=== PATIENT | female | born 1990 | race Caucasian/White ===

== ENCOUNTER 2016-02-21 15:35 | Outpatient (CLI) | payer MEDICAID | END 2016-02-21 15:36 | disposition home or self-care (01) | DX: Z36 Encounter for antenatal screening of mother (principal); Z3A.23 23 weeks gestation of pregnancy ==

== ENCOUNTER 2016-04-03 15:56 | Outpatient (CLI) | payer MEDICAID | END 2016-04-03 15:57 | DX: Z11.3 Encounter for screening for infections with a predominantly sexual mode of transmission (principal) ==

== ENCOUNTER 2016-04-17 08:00 | Outpatient (CLI) | payer MEDICAID | END 2016-04-17 23:59 | disposition home or self-care (01) | DX: Z36 Encounter for antenatal screening of mother (principal) ==

== ENCOUNTER 2016-05-01 10:25 | Outpatient (CLI) | payer MEDICAID | END 2016-05-01 10:26 | disposition home or self-care (01) | DX: R31.9 Hematuria, unspecified (principal) ==

== ENCOUNTER 2016-05-11 03:43 | Inpatient (IN) | payer MEDICAID ==
[2016-05-11] MEDS ORDERED: SODIUM CHLORIDE FLUSH 0.9% 10 ML SYRINGE IVP PRN (05:23)
[2016-05-11] MEDS ORDERED: SODIUM CHLORIDE FLUSH 0.9% 10 ML SYRINGE IVP SCH (06:00)
[2016-05-11] MEDS ORDERED: LACTATED RINGERS 1,000 ML IV SCH (06:00)
[2016-05-11] MEDS ORDERED: NITROFURANTOIN MACRO 100 MG CAPSULE PO SCH (09:00)
== END 2016-05-11 08:30 | disposition home or self-care (01) | DRG 780 ==
DX: O47.1 False labor at or after 37 completed weeks of gestation (principal); Z3A.39 39 weeks gestation of pregnancy; Z80.8 Family history of malignant neoplasm of other organs or systems

== ENCOUNTER 2016-05-11 16:20 | Outpatient (CLI) | payer MEDICAID | END 2016-05-11 18:45 | disposition home or self-care (01) | DX: Z34.03 Encounter for supervision of normal first pregnancy, third trimester (principal) ==

== ENCOUNTER 2016-05-11 22:59 | Inpatient (IN) | payer MEDICAID ==
[2016-05-12] MEDS ORDERED: SODIUM CHLORIDE FLUSH 0.9% 10 ML SYRINGE IVP PRN (01:06)
[2016-05-12] MEDS: LACTATED RINGERS 1,000 ML IV SCH ×3 (01:30→12:12)
[2016-05-12] MEDS: fentaNYL 100 MCG/2 ML VIAL IVP SCH ×2 (02:41→04:01)
[2016-05-12] MEDS ORDERED: fentaNYL 250 MCG/5 ML VIAL IVP ONE (03:45)
[2016-05-12] MEDS ORDERED: fentaNYL 100 MCG/2 ML VIAL IVP SCH ×2 (04:00→05:00)
[2016-05-12] MEDS ORDERED: OXYTOCIN/LACTATED RINGERS 250 ML IV ONE ×2 (06:57→10:15)
[2016-05-12] MEDS ORDERED: LIDOCAINE 1% 50 ML MDV ONE (07:20)
[2016-05-12] MEDS ORDERED: NITROFURANTOIN MACRO 100 MG CAPSULE PO SCH (09:00)
[2016-05-12] MEDS ORDERED: WITCH HAZEL/GLYCERIN 1 EACH MED..PAD TOP PRN (09:34)
[2016-05-12] MEDS ORDERED: HYDROCORTISONE/PRAMOXINE 10 GM PR PRN (09:34)
[2016-05-12] MEDS: SODIUM CHLORIDE FLUSH 0.9% 10 ML SYRINGE IVP SCH (12:02)
[2016-05-12] MEDS: ACETAMINOPHEN 500 MG TABLET PO SCH ×2 (12:05→20:16)
[2016-05-12] MEDS: IBUPROFEN 800 MG TABLET PO SCH ×3 (12:05→23:16)
[2016-05-12] MEDS: NITROFURANTOIN MACRO 100 MG CAPSULE PO SCH ×2 (12:05→23:16)
[2016-05-12] MEDS: DOCUSATE SODIUM 100 MG CAPSULE PO SCH (23:16)
[2016-05-13] MEDS: SODIUM CHLORIDE FLUSH 0.9% 10 ML SYRINGE IVP SCH ×2 (07:43→16:54)
[2016-05-13] MEDS: LACTATED RINGERS 1,000 ML IV SCH ×2 (07:44→16:54)
[2016-05-13] MEDS: ACETAMINOPHEN 500 MG TABLET PO SCH ×3 (08:01→16:55)
[2016-05-13] MEDS: DOCUSATE SODIUM 100 MG CAPSULE PO SCH ×2 (08:02→20:58)
[2016-05-13] MEDS: NITROFURANTOIN MACRO 100 MG CAPSULE PO SCH ×2 (08:02→20:58)
[2016-05-13] MEDS: IBUPROFEN 800 MG TABLET PO SCH ×3 (08:02→20:02)
[2016-05-14] MEDS: IBUPROFEN 800 MG TABLET PO SCH ×2 (01:33→08:25)
[2016-05-14] MEDS: ACETAMINOPHEN 500 MG TABLET PO SCH (01:34)
[2016-05-14] MEDS: DOCUSATE SODIUM 100 MG CAPSULE PO SCH (08:29)
[2016-05-14] MEDS: NITROFURANTOIN MACRO 100 MG CAPSULE PO SCH (08:29)
== END 2016-05-14 11:00 | disposition home or self-care (01) | DRG 775 ==
PROC: 10907ZC Drainage of Amniotic Fluid, Therapeutic from Products of Conception, Via Natural or Artificial Opening (ICD-10-PCS; principal; 2016-05-12)
PROC: 0HQ9XZZ Repair Perineum Skin, External Approach (ICD-10-PCS; principal; 2016-05-12)
PROC: 10E0XZZ Delivery of Products of Conception, External Approach (ICD-10-PCS; principal; 2016-05-12)
DX: O70.0 First degree perineal laceration during delivery (principal); O76 Abnormality in fetal heart rate and rhythm complicating labor and delivery; Z3A.39 39 weeks gestation of pregnancy; Z37.0 Single live birth; Z86.59 Personal history of other mental and behavioral disorders

== ENCOUNTER 2017-06-30 08:00 | Outpatient (CLI) | payer MEDICAID ==
[2017-06-30 13:18] LABS: MUDS CUTOFF CONCENTRATIONS CUTOFF CONC BELOW:
[2017-06-30 14:06] LABS: AMPHETAMINE SCREEN,URINE NEGATIVE (NEGATIVE); BENZODIAZEPINES SCREEN, URINE NEGATIVE (NEGATIVE); COCAINE SCREEN URINE NEGATIVE (NEGATIVE); METHADONE SCREEN, URINE NEGATIVE (NEGATIVE); METHAMPHETAMINES SCREEN, URINE NEGATIVE (NEGATIVE); OPIATE SCREEN, URINE NEGATIVE (NEGATIVE); OXYCODONE SCREEN, URINE NEGATIVE (NEGATIVE); PROPOXYPHENE SCREEN, URINE NEGATIVE (NEGATIVE); TRICYCLIC ANTIDEPRESSANT,URINE NEGATIVE (NEGATIVE)
[2017-06-30 19:13] LABS: BASOPHILS % (AUTO) 0.6 %; EOSINOPHILS # (AUTO) 0.1 10^3/uL (0.0-0.7); EOSINOPHILS % (AUTO) 0.9 %; LYMPHOCYTES # (AUTO) 1.6 10^3/uL (1.5-3.5); LYMPHOCYTES % (AUTO) 21.5 %; MEAN CORPUSCULAR HEMOGLOBIN 28.2 pg (27.0-31.0); MEAN CORPUSCULAR HGB CONC 32.8 g/dL (32.0-36.0); MEAN CORPUSCULAR VOLUME 85.9 fL (81.0-99.0); MEAN PLATELET VOLUME 9.2 fL (7.9-10.8); MONOCYTES # (AUTO) 0.9 10^3/uL (0.0-1.0); MONOCYTES % (AUTO) 11.5 %; NEUTROPHILS # (AUTO) 4.9 10^3/uL (1.5-6.6); NEUTROPHILS % (AUTO) 65.5 %; PLT - PLATELET COUNT 292 10^3/uL (130-450); RED BLOOD COUNT 4.26 10^6/uL (4.20-5.40); RED CELL DISTRIBUTION WIDTH 14.1 % (12.0-15.0); WHITE BLOOD COUNT 7.4 x10^3/uL (4.8-10.8)
[2017-06-30 19:17] LABS: BILIRUBIN,URINE NEGATIVE (NEGATIVE); GLUCOSE, URINE (UA) NEGATIVE (NEGATIVE); KETONES,URINE (UA) NEGATIVE (NEGATIVE); LEUKOCYTE ESTERASE, URINE NEGATIVE (NEGATIVE); NITRITE,URINE NEGATIVE (NEGATIVE); OCCULT BLOOD,URINE NEGATIVE (NEGATIVE); PH,URINE 7.5 PH (5.0-7.5); PROTEIN,URINE NEGATIVE (NEGATIVE); UROBILINOGEN,URINE 0.2 (NORMAL) E.U./dL (NORMAL)
[2017-06-30 19:30] LABS: AMORPHOUS SEDIMENT,UR Moderate /LPF; BACTERIA,URINE Few /HPF (None Seen); CLARITY,URINE CLEAR (CLEAR); RBC,URINE None Seen /HPF (0-5); SQUAMOUS EPITHELIAL CELL,UR MANY Squamous (<= Few)
[2017-07-01 10:54] LABS: HEPATITIS B SURFACE ANTIGEN NON-REACTIVE (NON-REACTIVE)
[2017-07-01 10:55] LABS: HEPATITIS C ANTIBODY NON-REACTIVE (NON-REACTIVE)
[2017-07-01 14:07] LABS: HIV AG/AB 4TH GEN NON-REACTIVE (NON-REACTIVE)
== END 2017-06-30 08:01 | disposition home or self-care (01) ==
LOC: LAB.N 08:00
PROVIDERS: ATTEND Nurse Practitioner Obstetrics & Gynecology
DX: Z36.9 Encounter for antenatal screening, unspecified (principal)
CPT/HCPCS: 36415; 80306; 81001; 81599; 85025; 86592; 86762; 86803; 86850; 86900; 86901; 87340; 87389

== ENCOUNTER 2017-08-04 17:59 | Emergency (ER) | payer MEDICAID ==
--- NOTE | 2017-08-04 20:29 | ED Physician Documentation ---
PD HPI LOWER EXT INJURY - Stated complaint Stated Complaint: LT ANKLE PX - Chief complaint Chief Complaint: Ext Problem - History obtained from History obtained from: Patient - History of Present Illness PD HPI LOW EXT INJURY LOCATION: Left, Foot Type of injury: Fall Where injury occurred: Home Timing - onset: Enter time (13:00), Today Timing - details: Abrupt onset Improved by: Rest Worsened by: Moving, Palpating Associated symptoms: Swelling Recently seen: Not recently seen - Additional information Additional information: twisted left ankle when walking down steps at home (outdoors). Minimal weight- bearing due to pain. She is approximately 10 weeks Review of Systems Musculoskeletal: reports: Extremity pain, Extremity swelling, Pain with weight bearing Neurologic: denies: Focal weakness, Numbness PD PAST MEDICAL HISTORY - Past Medical History Respiratory: Asthma - Past Surgical History Past Surgical History: No - Present Medications Home Medications: Ambulatory Orders Medication Instructions Recorded Confirmed No Known Home Medications [No 08/04/17 08/04/17 Known Home Medications] - Allergies Allergies/Adverse Reactions: Allergies Allergy/AdvReac Type Severity Reaction Status Date / Time No Known Drug Allergies Allergy Verified 02/16/13 17:39 - Social History Does the pt smoke?: No Smoking Status: Never smoker Does the pt drink ETOH?: Yes Does the pt have substance abuse?: No - Immunizations Immunizations are current?: Yes - POLST Patient has POLST: No PD ED PE NORMAL - Vitals Vital signs reviewed: Yes - General General: Alert and oriented X 3, No acute distress, Well developed/nourished - Neuro Neuro: No motor deficit, No sensory deficit PD ED PE EXPANDED - Extremities Extremities: Tenderness, Limited ROM (right ankle (mildly limited flexion and extension due to pain)), Swelling, Right foot (lateral aspect tenderness with generalized edema of the mid foot) Results - Vitals Vitals: Vital Signs - 24 hr 08/04/17 08/04/17 18:09 22:00 Temperature 36.8 C Heart Rate 108 H 88 Respiratory 16 16 Rate Blood Pressure 118/74 118/72 O2 Saturation 96 98 Oxygen O2 Source Room air - Rads (name of study) left foot xrays Radiology: Prelim report reviewed, See rad report PD MEDICAL DECISION MAKING - ED course Complexity details: reviewed results, re-evaluated patient, considered differential, d/w patient - Sepsis Event Vital Signs: Vital Signs - 24 hr 08/04/17 08/04/17 18:09 22:00 Temperature 36.8 C Heart Rate 108 H 88 Respiratory 16 16 Rate Blood Pressure 118/74 118/72 O2 Saturation 96 98 Oxygen O2 Source Room air Departure - Departure Disposition: 01 Home, Self Care Clinical Impression: Sprain of foot, left Qualifiers: Encounter type: initial encounter Qualified Code(s): S93.602A - Unspecified sprain of left foot, initial encounter Condition: Good Instructions: ED Sprain Foot Comments: Use the crutches and splint (shoe) as needed: I recommend you use them for at least 2 days, and then continue if they are still helping minimize discomfort while getting around. Use tylenol as needed (as directed by the label) for pain. If you are not improving after 3-5 days, follow up with your primary care provider. Forms: Activity restrictions Discharge Date/Time: 08/04/17 22:00
[2017-08-04] MEDS ORDERED: ACETAMINOPHEN 325 MG TABLET PO STA (20:39)
--- NOTE | 2017-08-04 21:36 | XRAY Report ---
Procedure Date: 08/04/2017 Accession Number: [id number] / [id number] Procedure: XR - Foot 3 View LT CPT Code: FULL RESULT: EXAM: LEFT FOOT RADIOGRAPHY EXAM DATE: 08/04/2017 09:00 PM. CLINICAL HISTORY: Injury, pain, tenderness. COMPARISON: None. TECHNIQUE: 3 views. FINDINGS: Bones: No acute fractures or suspicious bone lesions. Joints: No subluxations. Soft Tissues: Unremarkable. IMPRESSION: No acute radiographic abnormalities. RADIA
[2017-08-04 22:02] VITALS: BP 118/72
== END 2017-08-04 22:00 | disposition home or self-care (01) ==
LOC: ED 17:59
DX: S93.602A Unspecified sprain of left foot, initial encounter (principal); X50.1XXA Overexertion from prolonged static or awkward postures, initial encounter; Y93.01 Activity, walking, marching and hiking; Y92.009 Unspecified place in unspecified non-institutional (private) residence as the place of occurrence of the external cause
CPT/HCPCS: 73630; 99282; 99283; A9270

== ENCOUNTER 2017-09-15 08:04 | Outpatient (CLI) | payer MEDICAID ==
--- NOTE | 2017-09-15 10:47 | Ultrasound Report ---
Procedure Date: 09/15/2017 Accession Number: [id number] / [id number] Procedure: US - OB Detailed Eval CPT Code: FULL RESULT: EXAM: OB Detailed Eval DATE: 09/15/2017 9:34 AM CLINICAL HISTORY: ENCTR FOR SCREENING TECHNIQUE: Real-time scanning was performed with appeals representative static images obtained. COMPARISON: None LAST MENSTRUAL PERIOD: Unsure US Age: 20 weeks 1 days EFW Hadlock: 361 grams Heart Rate: 139 bpm US EDC: 02/01/2018 BPD Hadlock: 19 weeks 3 days; Mean mm 45 HC Hadlock: 19 weeks 6 days; Mean mm 173 AC Hadlock: 155 weeks 5 days; Mean mm 20 FL Hadlock: 20 weeks 5 days; Mean mm 34 Presentation: Breech Placental Location: Posterior Cervical Length: 3.5 cm Amniotic Fluid: CONNER Subjectively normal cm; MVP 3.5 cm FINDINGS: There is a single live intrauterine gestation in breech presentation with a posterior positioned placenta without evidence of previa and a nuchal 3 vessel cord (cord around neck). The following anatomic structures were visualized and appear normal: The intracranial contents, including the ventricles and posterior fossa; the lips and orbits; the spine; the heart, including 4 chamber view and outflow tracts, and diaphragm; the abdominal contents, including the stomach, the bilateral kidneys, and urinary bladder, as well as a normal 3-vessel cord insertion; 4 limbs. IMPRESSION: Single live intrauterine gestation in breech presentation with a nuchal cord and a sonographic age of 20 weeks and 1 day.
== END 2017-09-15 08:05 | disposition home or self-care (01) ==
LOC: DI 08:04
PROVIDERS: ATTEND Nurse Practitioner Obstetrics & Gynecology
DX: Z36.9 Encounter for antenatal screening, unspecified (principal)
CPT/HCPCS: 76811

== ENCOUNTER 2017-12-13 12:27 | Outpatient (CLI) | payer SELFPAY ==
[2017-12-13 13:48] LABS: HGB - HEMOGLOBIN 11.4 g/dL (12.0-16.0); MEAN CORPUSCULAR HEMOGLOBIN 28.4 pg (27.0-31.0); MEAN CORPUSCULAR HGB CONC 34.3 g/dL (32.0-36.0); MEAN PLATELET VOLUME 8.6 fL (7.9-10.8); RED BLOOD COUNT 4.01 10^6/uL (4.20-5.40); RED CELL DISTRIBUTION WIDTH 13.4 % (12.0-15.0); WHITE BLOOD COUNT 7.3 x10^3/uL (4.8-10.8)
== END 2017-12-13 12:28 | disposition home or self-care (01) ==
LOC: LAB 12:27
PROVIDERS: ATTEND Nurse Practitioner Obstetrics & Gynecology
DX: Z36.9 Encounter for antenatal screening, unspecified (principal)
CPT/HCPCS: 36415; 82950; 85027; 86850

== ENCOUNTER 2018-01-17 13:50 | Outpatient (CLI) | payer MEDICAID | END 2018-01-17 23:59 | LOC: LAB.R 13:50 | PROVIDERS: ATTEND Nurse Practitioner Obstetrics & Gynecology | DX: Z34.90 Encounter for supervision of normal pregnancy, unspecified, unspecified trimester (principal) | CPT/HCPCS: 87081 ==

== ENCOUNTER 2018-01-24 14:13 | Outpatient (CLI) | payer MEDICAID | END 2018-01-24 14:14 | disposition home or self-care (01) | LOC: LAB 14:13 | PROVIDERS: ATTEND Nurse Practitioner Obstetrics & Gynecology | DX: Z13.0 Encounter for screening for diseases of the blood and blood-forming organs and certain disorders involving the immune mechanism (principal) | CPT/HCPCS: 36415; 85018 ==

== ENCOUNTER 2018-01-29 03:28 | Inpatient (IN) | payer MEDICAID ==
[2018-01-29] MEDS ORDERED: SODIUM CHLORIDE FLUSH 0.9% 10 ML SYRINGE IVP PRN (03:53)
[2018-01-29] MEDS ORDERED: OXYTOCIN/SODIUM CHLORIDE 500 ML IV ONE ×2 (04:07→06:41)
--- NOTE | 2018-01-29 04:24 | HISTORY & PHYSICAL EXAMINATION ---
Admit History - Visit Reason Visit Reason: Contractions - : 2 Parity: 1 Premature: 0 Ectopic: 0 : 0 Care: positive: [facility] Risk/History: positive: None Complications This : positive: None Smoking Status: Never smoker - Mother's Labs Mother's Blood Type: positive: O Mother's RH: positive: Positive GBS: positive: Group B Step Negative Rubella Status: positive: Immune - Other Maternal History Other Maternal History: HPI: This 27yo @ 39.3wks gestation by LMP presents with c/o contractions every 3 minutes since approximately 1999 on 01/28/2018. She denies VB or Lof. Reports +FM. She denies PRATT, visual disturbances, RUQ or epigastric pain. She is coping well with contractions and states she nearly waited to come in. Upon arrival she was noted to be 8/100/0, vertex, BOW intact. FHR baseline 130s, moderate variability, +accels, early decelerations. Contractions palpate firm every 3 minutes with soft resting tone. 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 Surgical Hx: none Social Hx: Never smoker, no etoh or IVDA. SO Romeo, son Romeo III Family Hx: Brain cancer - father, caused ; HTN - mother Ultrasounds: 06/30/2017 @ 9.0wks reveals single, viable, intrauterine 09/16/2017 FAS WNL, posterior placenta, no previa. Size c/w dating. CONNER WNL. 3VC. labs: Hgb 12.0; Hct 36.6; PLT 292 O pos, antibody negative Rubella immune Hep C neg HIV neg Hep B neg RPR non-reactive UTOX negative 28wk labs: Hgb 11.4; PLT 208 1 hour GTT 71 Antibody neg 01/24/18 Hgb 11.3 Tdap 11/17/2017; flu 11/17/2017 PE: Mood good A&O x 4 atraumatic, normocephalic Heart RRR w/o M/G/R Lungs CTAB Abdomen gravid, soft, nontender SVE 8/100/0, vertex, BOW intact Bilateral LE's no edema Assessment: 27yo @ 39.3wks gestation by L=9.0wk U/S Active labor GBS neg FHR Category I Plan: Admit for expectant management Continuous monitoring Anticipate spontaneous vaginal delivery Meds/Allgy - Home Medications Home Medications: Ambulatory Orders Medication Instructions Recorded Confirmed No Known Home Medications 08/04/17 08/04/17 - Allergies Allergies/Adverse Reactions: Allergies Allergy/AdvReac Type Severity Reaction Status Date / Time No Known Drug Allergies Allergy Verified 02/16/13 17:39 Review of Systems - Constitutional Constitutional: denies: Fatigue, Fever, Chills - Eyes Eyes: denies: Blurred vision, Spots in vision, Field loss, Vision loss, Dipolpia - Cardiovascular Cariovascular: denies: Irregular heart rate, Palpitations, Chest pain - Respiratory Respiratory: denies: Cough, Sputum production, Wheezing - Gastrointestinal Gastrointestinal: denies: Abdominal pain, Constipation, Diarrhea, Change in bowel habits - Genitourinary Genitourinary: denies: Dysuria, Frequency, Urgency, Hematuria - Psychiatric Psychiatric: denies: Depression, Anxiety Physical - Abdominal Exam Contraction Frequency (min/apart): 3 Contraction Intensity: positive: Strong Uterine Resting Tone: positive: Soft - Monitoring Heart Rate Baseline: 130 Strip Review: positive: Category I - Presentation Presentation: positive: Vertex - Vaginal Exam Membranes: positive: Membranes intact Dilation (in cm): 8 Effacement (%): 100 Station: positive: 0 Cervical Position: positive: Anterior - Speculum Exam Speculum Exam Performed: positive: No Plan for Labor - Plan For Labor I expect patient to be DC'd or transferred within 96 hours.: Yes
[2018-01-29] MEDS: LACTATED RINGERS 1,000 ML IV SCH ×2 (04:30→08:31)
[2018-01-29] MEDS ORDERED: LIDOCAINE 1% 50 ML MDV ONE (04:40)
[2018-01-29 04:51] LABS: BASOPHILS # (AUTO) 0.1 10^3/uL (0.0-0.1); BASOPHILS % (AUTO) 1.1 %; EOSINOPHILS # (AUTO) 0.1 10^3/uL (0.0-0.7); EOSINOPHILS % (AUTO) 0.6 %; HGB - HEMOGLOBIN 11.5 g/dL (12.0-16.0); LYMPHOCYTES # (AUTO) 3.2 10^3/uL (1.5-3.5); LYMPHOCYTES % (AUTO) 24.1 %; MEAN CORPUSCULAR HEMOGLOBIN 25.7 pg (27.0-31.0); MEAN CORPUSCULAR HGB CONC 32.8 g/dL (32.0-36.0); MEAN CORPUSCULAR VOLUME 78.5 fL (81.0-99.0); MEAN PLATELET VOLUME 9.9 fL (7.9-10.8); MONOCYTES # (AUTO) 1.6 10^3/uL (0.0-1.0); MONOCYTES % (AUTO) 12.2 %; NEUTROPHILS # (AUTO) 8.2 10^3/uL (1.5-6.6); PLT - PLATELET COUNT 239 10^3/uL (130-450); RED BLOOD COUNT 4.47 10^6/uL (4.20-5.40); RED CELL DISTRIBUTION WIDTH 14.3 % (12.0-15.0); WHITE BLOOD COUNT 13.2 x10^3/uL (4.8-10.8)
[2018-01-29] MEDS: OXYTOCIN/SODIUM CHLORIDE 500 ML IV SCH ×2 (05:30→08:12)
[2018-01-29] MEDS ORDERED: HYDROCORTISONE 1% CREAM 28 GM TUBE PR PRN (05:49)
[2018-01-29] MEDS ORDERED: WITCH HAZEL/GLYCERIN 1 EACH MED..PAD TOP PRN (05:49)
--- NOTE | 2018-01-29 06:00 | DELIVERY NOTE ---
Delivery Note - Labor Labor: positive: Spontaneous - Delivery Method Delivery Method: positive: Spontaneous vaginal delivery - Presentation Presentation: positive: Vertex, SONA - left occiput anterior - Nuchal Cord Nuchal Cord: positive: Present, Reduced - Amniotic Fluid Description Amniotic Fluid Description: positive: Clear - Episiotomy Type Episiotomy Type: positive: None - Laceration Laceration: positive: None - Delivery Outcome Delivery Outcome: positive: Livebirth - [place]: positive: Placed in direct skin contact with mother, Stimulated, Warmed, [place] used sex: positive: Female - Cord Cord: positive: 3 vessels - Placenta Placenta: positive: Intact, Spontaneous - Estimated Blood Loss Estimated Blood Loss (in cc): 150 - Post Delivery Events Post Delivery Events: positive: No post delivery events - Delivery Comments (Free Text/Narrative) Delivery Comments (Free Text/Narrative): Labor: This 27yo @ 39.3wks gestation by L=9.0wk U/S presented at approximately 0345 on 01/29/2018 with c/o contractions. She initially reported no Lof but later suggested she likely experienced some leakage of clear vaginal fluid at 2200 on 01/28/2018. Upon arrival SVE 8/100/0, vertex, with bulging forebag of amniotic fluid. FHR pattern demonstrated 130s baseline with moderate variability throughout and intermittent early decelerations with occasional prolonged late decelerations. Category II throughout, overall reassuring. Normal labor course. AROM forebag of amniotic fluid at 0450 and was noted to be a small amount of clear fluid. Patient progressed to complete with spontaneous urge to push 0520. : Normal of a viable female infant named Anita at 0529 on 01/29/2018. Nuchal cord x 1 - reduced. 's were 8/9 at 1 and 5 min respectively. The was placed on maternal abdomen, stimulated, dried, and placed skin to skin. Pitocin administered via IV for hemostasis. The umbilical cord was allowed to stop pulsating at which time it was doubly clamped by CNM and cut by FOB. Cord blood was obtained. Placenta delivered spontaneously and intact with trailing membranes at 0534. 3VC. EBL 150mL. Fourth stage: Uterine fundus firm and there is no excessive bleeding. The perineum, vagina, and cervix were inspected and found to be intact. initiated. Family bonding well. Both mother and baby were left in stable condition.
[2018-01-29] MEDS: IBUPROFEN 800 MG TABLET PO SCH ×3 (06:06→18:40)
[2018-01-29] MEDS: ACETAMINOPHEN 500 MG TABLET PO SCH ×2 (06:06→18:40)
[2018-01-29] MEDS ORDERED: SODIUM CHLORIDE FLUSH 0.9% 10 ML SYRINGE IVP SCH (09:00)
[2018-01-29] MEDS: HYDROcod/ACETAM 5/325 MG TABLET PO PRN ×2 (09:51→13:52)
[2018-01-29] MEDS: DOCUSATE SODIUM 100 MG CAPSULE PO SCH ×2 (09:51→21:47)
[2018-01-30] MEDS: IBUPROFEN 800 MG TABLET PO SCH ×3 (00:43→12:33)
[2018-01-30] MEDS: ACETAMINOPHEN 500 MG TABLET PO SCH ×2 (02:33→09:48)
--- NOTE | 2018-01-30 09:39 | Discharge Plan ---
Discharge Plan Disposition: 01 Home, Self Care Condition: Good Diet: Regular Activity Restrictions: No Restrictions Shower Restrictions: No Driving Restrictions: No No Smoking: If you smoke, Please STOP! Call for help. Follow-up with: Shweta Kelley CNM, ARNP [Provider Admit Priv/Credential] -
--- NOTE | 2018-01-30 09:44 | PROVIDER PROGRESS NOTE ---
Subjective - Subjective Subjective: FINAL PROGRESS NOTE: S: Bonding well with baby. with little difficulty - at times finds it difficulty to keep baby awake at the breast. Is using a nipple shield per her request despite education about adverse effects. Bleeding decreased and is light. Pain well controlled with oral medications. Pt reports after pitocin was done infusing, her pain subsided. Urinating without difficulty or pain. Tolerating a regular diet. +BM - soft, no pain. Desires to be discharged home today. O: BP 118/62, RR 17, HR 71, T 37.1 Heart RRR w/o M/G/R, Lungs CTAB, Abdomen soft and nontender with fundus firm at U-1, perineum intact, light lochia rubra, Bilateral LE's no edema. Nipples without cracking, bleeding, or areas of tenderness. A: 27yo -->P2 PPD#1 s/p TSVD of viable female named Anita P: Reviewed self care and warning s/sx. Encouraged PO ibuprofen and tylenol OTC for pain management. Encouraged PNV while . Pt intends to f/u with myself in 3 weeks for routine visit. Offered 1 week pp support visit - pt will decide but may decline. She verbalized understanding and agrees to above plan. She denies further questions or concerns today. Discharge home today on PPD#1. Objective - Vital Signs/Intake & Output Vital Signs: Vital Signs x48h Temp Pulse Resp BP Pulse Ox 01/30/18 05:35 37.1 C 71 17 118/62 99 Intake & Output: Intake & Output 01/27/18 01/28/18 01/29/18 01/30/18 23:59 23:59 23:59 23:59 Intake Total 1866.30 Balance 1866.30 - Lab Results Fish Bones: 01/29/18 04:24
[2018-01-30] MEDS: DOCUSATE SODIUM 100 MG CAPSULE PO SCH (09:48)
[2018-01-30 11:54] VITALS: BP 123/66
--- NOTE | 2018-01-30 14:14 | DISCHARGE SUMMARY ---
Physician: JOSE DAVID Caldwell DATE OF ADMISSION: 01/29/2018 DATE OF DISCHARGE: 01/30/2018 DIAGNOSES ON ADMISSION 1. A 27-year-old 2, para 1-0-0-1, at 39 and 3 weeks' gestation by last menstrual period . 2. Active labor. 3. Group B strep negative. DIAGNOSES ON DISCHARGE 1. A 27-year-old 2, para 2-0-0-2, status post spontaneous vaginal delivery on 01/29/2018. 2. Normal recovery. BRIEF HISTORY: Estela is a patient of [facility] who presented on 01/29/2018 with complaints of contractions. Upon her arrival, she was noted to be 8 cm dilated, 100% effaced, and 0 station and initially believed her bag of burgess to be intact. Upon further inquisition at onset of 2nd stage, the patient states she may have experienced some vaginal leaking of fluid at 2200 on 01/28/2018. AROM forebag of amniotic fluid at 0450 was noted to be scant amount of clear fluid. The patient progressed to complete and delivered a viable female at 0529 on 01/29/2018. Nuchal cord x1, easily reduced. Apgars were 8 and 9 at 1 and 5 minutes respectively. Pitocin was administered via IV for hemostasis. EBL 150 mL The perineum, vagina and cervix were inspected and found to be intact. initiated. She has been doing well in her course. She is ambulating and tolerating a regular diet. She is without difficulty and her lochia is normal. She has been given instructions to continue p.o. ibuprofen and Tylenol for pain management. Advised continuation of vitamin while . She has been given precautions to call if she has any worsening fevers, chills, abdominal pain, increased bleeding or foul smelling vaginal lochia. She will be discharged home today on day #1 with instructions to follow up with myself at [facility] in 3 weeks for routine visit, and in 8 weeks for annual well woman exam. TD: 01/30/2018 09:56 FRANKO
== END 2018-01-30 15:40 | disposition home or self-care (01) | DRG 807 ==
LOC: WFO 03:28 → FBP 03:30 → WFO 03:49 → FBP 03:50
PROVIDERS: ADMIT Nurse Practitioner Obstetrics & Gynecology; ATTEND Nurse Practitioner Obstetrics & Gynecology
PROC: 10E0XZZ Delivery of Products of Conception, External Approach (ICD-10-PCS; principal; 2018-01-29)
PROC: 10907ZC Drainage of Amniotic Fluid, Therapeutic from Products of Conception, Via Natural or Artificial Opening (ICD-10-PCS; 2018-01-29)
DX: O69.9XX0 Labor and delivery complicated by cord complication, unspecified, not applicable or unspecified (principal); Z37.0 Single live birth; Z3A.39 39 weeks gestation of pregnancy; Z86.59 Personal history of other mental and behavioral disorders
CPT/HCPCS: 85025

== ENCOUNTER 2020-01-08 08:00 | Outpatient (CLI) | payer MEDICAID ==
[2020-01-08 18:05] LABS: BILIRUBIN,URINE NEGATIVE (NEGATIVE); GLUCOSE, URINE (UA) NEGATIVE (NEGATIVE); KETONES,URINE (UA) NEGATIVE (NEGATIVE); LEUKOCYTE ESTERASE, URINE NEGATIVE (NEGATIVE); NITRITE,URINE NEGATIVE (NEGATIVE); OCCULT BLOOD,URINE NEGATIVE (NEGATIVE); PROTEIN,URINE NEGATIVE (NEGATIVE); UROBILINOGEN,URINE 0.2 (NORMAL) E.U./dL (NORMAL)
[2020-01-08 18:07] LABS: CLARITY,URINE TURBID (CLEAR)
[2020-01-08 18:46] LABS: AMORPHOUS SEDIMENT,UR Marked /LPF; BACTERIA,URINE Many /HPF (None Seen); RBC,URINE None Seen /HPF (0-5); SQUAMOUS EPITHELIAL CELL,UR RARE Squamous (<= Few)
[2020-01-08 21:38] LABS: CANDIDA GROUP DNA NEGATIVE (NEGATIVE); CANDIDA KRUSEI DNA NEGATIVE (NEGATIVE); TRICHOMONAS VAGINALIS DNA NEGATIVE (NEGATIVE)
== END 2020-01-08 23:59 | disposition home or self-care (01) ==
LOC: LAB.R 08:00
PROVIDERS: ATTEND Obstetrics & Gynecology
DX: N89.8 Other specified noninflammatory disorders of vagina (principal); Z32.01 Encounter for pregnancy test, result positive
CPT/HCPCS: 81001; 81003; 87086; 87661; 87801

== ENCOUNTER 2020-01-15 10:57 | Outpatient (CLI) | payer MEDICAID ==
--- NOTE | 2020-01-15 12:50 | Ultrasound Report ---
PROCEDURE: OB First Trimester w/TV INDICATIONS: TEST POSITIVE TECHNIQUE: Both transabdominal and transvaginal scanning were performed. COMPARISON: None. FINDINGS: LMP was 11/20/2019, delivery date by LMP is 08/26/2020. This study represents the first OB ultrasound, 01/15/2020 with delivery date projected from this examination centered on 09/09/2020, +/- 5 days. Note is made of a crown-rump length of 0.34 cm, which correlates with a gestational age of 6 weeks 0 days, +/- 5 days. cardiac activity is normal at 115 bpm. Normal maternal cervical appearance. N ormal ovarian appearance considering gestational status. IMPRESSION: Single living intrauterine gestation, with delivery date projected to be centered on 09/09/2020, +/- 5 days. Follow-up anatomic survey is recommended at 20 weeks gestation. Reviewed by: Torsten Garcia MD on 01/15/2020 12:49 PM PST Approved by: Torsten Garcia MD on 01/15/2020 12:49 PM PST Station ID: [id number]
== END 2020-01-15 10:58 | disposition home or self-care (01) ==
LOC: DI 10:57
PROVIDERS: ATTEND Obstetrics & Gynecology
DX: Z32.01 Encounter for pregnancy test, result positive (principal); R10.2 Pelvic and perineal pain
CPT/HCPCS: 81001; 87086

== ENCOUNTER 2020-01-15 11:59 | Outpatient (CLI) | payer MEDICAID ==
[2020-01-15 12:14] LABS: BILIRUBIN,URINE NEGATIVE (NEGATIVE); CLARITY,URINE CLEAR (CLEAR); GLUCOSE, URINE (UA) NEGATIVE (NEGATIVE); KETONES,URINE (UA) NEGATIVE (NEGATIVE); LEUKOCYTE ESTERASE, URINE NEGATIVE (NEGATIVE); NITRITE,URINE NEGATIVE (NEGATIVE); OCCULT BLOOD,URINE NEGATIVE (NEGATIVE); PROTEIN,URINE NEGATIVE (NEGATIVE); UROBILINOGEN,URINE 0.2 (NORMAL) E.U./dL (NORMAL)
[2020-01-15 12:25] LABS: BACTERIA,URINE Few /HPF (None Seen); RBC,URINE 0-5 /HPF (0-5); SQUAMOUS EPITHELIAL CELL,UR MANY Squamous (<= Few)
== END 2020-01-15 12:00 | disposition home or self-care (01) ==
LOC: LAB 11:59
PROVIDERS: ATTEND Obstetrics & Gynecology
DX: R10.2 Pelvic and perineal pain (principal)
CPT/HCPCS: 81001; 87086

== ENCOUNTER 2020-02-12 08:00 | Outpatient (CLI) | payer MEDICAID ==
[2020-02-13 10:21] LABS: MUDS CUTOFF CONCENTRATIONS CUTOFF CONC BELOW:
[2020-02-13 10:36] LABS: AMPHETAMINE SCREEN,URINE NEGATIVE (NEGATIVE); BARBITURATE SCREEN,UR NEGATIVE (NEGATIVE); BENZODIAZEPINES SCREEN, URINE NEGATIVE (NEGATIVE); COCAINE SCREEN URINE NEGATIVE (NEGATIVE); METHADONE SCREEN, URINE NEGATIVE (NEGATIVE); METHAMPHETAMINES SCREEN, URINE NEGATIVE (NEGATIVE); OPIATE SCREEN, URINE NEGATIVE (NEGATIVE); OXYCODONE SCREEN, URINE NEGATIVE (NEGATIVE); PROPOXYPHENE SCREEN, URINE NEGATIVE (NEGATIVE); THC CANNABINOID SCREEN, URINE NEGATIVE (NEGATIVE); TRICYCLIC ANTIDEPRESSANT,URINE NEGATIVE (NEGATIVE)
== END 2020-02-12 23:59 ==
LOC: LAB.R 08:00
PROVIDERS: ATTEND Advanced Practice Midwife
DX: Z34.90 Encounter for supervision of normal pregnancy, unspecified, unspecified trimester (principal); Z36.89 Encounter for other specified antenatal screening
CPT/HCPCS: 80306

== ENCOUNTER 2020-02-26 13:45 | Emergency (ER) | payer MEDICAID ==
[2020-02-26 14:16] LABS: BASOPHILS % (AUTO) 0.3 %; EOSINOPHILS % (AUTO) 0.5 %; HGB - HEMOGLOBIN 13.3 g/dL (12.0-16.0); LYMPHOCYTES # (AUTO) 1.4 10^3/uL (1.5-3.5); MEAN CORPUSCULAR HEMOGLOBIN 28.2 pg (27.0-31.0); MEAN CORPUSCULAR HGB CONC 32.4 g/dL (32.0-36.0); MEAN CORPUSCULAR VOLUME 87.1 fL (81.0-99.0); MEAN PLATELET VOLUME 10.2 fL (7.9-10.8); MONOCYTES # (AUTO) 0.6 10^3/uL (0.0-1.0); MONOCYTES % (AUTO) 7.7 %; NEUTROPHILS # (AUTO) 5.4 10^3/uL (1.5-6.6); NEUTROPHILS % (AUTO) 72.1 %; PLT - PLATELET COUNT 292 10^3/uL (130-450); RED BLOOD COUNT 4.72 10^6/uL (4.20-5.40); RED CELL DISTRIBUTION WIDTH 12.8 % (12.0-15.0); WHITE BLOOD COUNT 7.5 x10^3/uL (4.8-10.8)
[2020-02-26 14:19] LABS: BILIRUBIN,URINE NEGATIVE (NEGATIVE); GLUCOSE, URINE (UA) NEGATIVE (NEGATIVE); KETONES,URINE (UA) NEGATIVE (NEGATIVE); LEUKOCYTE ESTERASE, URINE NEGATIVE (NEGATIVE); NITRITE,URINE NEGATIVE (NEGATIVE); OCCULT BLOOD,URINE TRACE-INTA (NEGATIVE); PROTEIN,URINE NEGATIVE (NEGATIVE); UROBILINOGEN,URINE 0.2 (NORMAL) E.U./dL (NORMAL)
[2020-02-26 14:20] LABS: CLARITY,URINE CLEAR (CLEAR)
[2020-02-26 14:33] LABS: ALBUMIN/GLOBULIN RATIO 1.1 (1.0-2.2); BILIRUBIN,TOTAL 0.5 mg/dL (0.2-1.0); CALCIUM 9.7 mg/dL (8.5-10.3); CREATININE 0.6 mg/dL (0.4-1.0); TOTAL PROTEIN 7.6 g/dL (6.7-8.2)
--- NOTE | 2020-02-26 16:00 | ED Physician Documentation ---
PD HPI FEMALE - Stated complaint Stated Complaint: SPOTTING - Chief complaint Chief Complaint: Abd Pain - History obtained from History obtained from: Patient - History of Present Illness Timing - details: Waxing and waning Pain level max: 0 Pain level max: 0 Associated symptoms: Vaginal bleeding. No: Fever, Pelvic pain, Vaginal pain, Vaginal discharge, Genital sore/lesion - Additional information Additional information: 29-year-old female presents to the emergency department stating that she has had vaginal bleeding for the past 24 hours. She is approximately 11 to 12 weeks . Nothing makes it better or worse. Mild cramping. 3 para 2. She is followed at the OB clinic here. No trauma. No recent intercourse. Review of Systems Constitutional: denies: Fever, Chills Respiratory: denies: Cough GI: denies: Abdominal Pain, Nausea, Vomiting, Diarrhea Skin: denies: Rash Musculoskeletal: denies: Neck pain, Back pain Neurologic: denies: Headache PD PAST MEDICAL HISTORY - Past Medical History Past Medical History: Yes Respiratory: Asthma - Past Surgical History Past Surgical History: No - Present Medications Home Medications: Ambulatory Orders Medication Instructions Recorded Confirmed No Known Home Medications 08/04/17 08/04/17 - Allergies Allergies/Adverse Reactions: Allergies Allergy/AdvReac Type Severity Reaction Status Date / Time No Known Drug Allergies Allergy Verified 02/26/20 13:55 - Social History Does the pt smoke?: No Smoking Status: Never smoker Does the pt drink ETOH?: Yes Does the pt have substance abuse?: No - Immunizations Immunizations are current?: Yes - POLST Patient has POLST: No PD ED PE NORMAL - Vitals Vital signs reviewed: Yes - General General: Alert and oriented X 3, No acute distress - HEENT HEENT: Moist mucous membranes - Neck Neck: Supple, no meningeal sign - Cardiac Cardiac: RRR - Respiratory Respiratory: No respiratory distress, Clear bilaterally - Abdomen Abdomen: Soft, Non tender, Non distended - Derm Derm: Warm and dry - Neuro Neuro: Alert and oriented X 3 - Psych Psych: Normal mood, Normal affect Results - Vitals Vitals: Vital Signs - 24 hr 02/26/20 02/26/20 02/26/20 13:51 13:55 15:55 Temperature 36.6 C 36.9 C 36.9 C Heart Rate 110 H 106 H 100 Respiratory 16 18 18 Rate Blood Pressure 146/77 H 123/79 127/81 H O2 Saturation 100 98 100 Oxygen O2 Source Room air - Labs Labs: Laboratory Tests 02/26/20 02/26/20 02/26/20 14:05 14:11 14:11 WBC 7.5 RBC 4.72 Hgb 13.3 Hct 41.1 MCV 87.1 MCH 28.2 MCHC 32.4 RDW 12.8 Plt Count 292 MPV 10.2 Neut # (Auto) 5.4 Lymph # (Auto) 1.4 L [place] # (Auto) 0.6 Eos # (Auto) 0.0 Baso # (Auto) 0.0 Absolute Nucleated RBC 0.00 Nucleated RBC % 0.0 Sodium 137 Potassium 3.6 Chloride 104 Carbon Dioxide 20 L Anion Gap 13.0 BUN 7 Creatinine 0.6 Estimated GFR (MDRD) 119 Glucose 99 Calcium 9.7 Total Bilirubin 0.5 AST 18 ALT 14 Alkaline Phosphatase 50 Total Protein 7.6 Albumin 4.0 Globulin 3.6 Albumin/Globulin Ratio 1.1 Lipase 29 HCG, Quant Urine Color YELLOW Urine Clarity CLEAR Urine pH 8.0 H Ur Specific [place] 1.020 Urine Protein NEGATIVE Urine Glucose (UA) NEGATIVE Urine Ketones NEGATIVE Urine Occult Blood TRACE-INTA Urine Nitrite NEGATIVE Urine Bilirubin NEGATIVE Urine Urobilinogen 0.2 (NORMAL) Ur Leukocyte Esterase NEGATIVE Ur Microscopic Review NOT INDICATED Urine Culture Comments NOT INDICATED 02/26/20 14:11 WBC RBC Hgb Hct MCV MCH MCHC RDW Plt Count MPV Neut # (Auto) Lymph # (Auto) Griggs # (Auto) Eos # (Auto) Baso # (Auto) Absolute Nucleated RBC Nucleated RBC % Sodium Potassium Chloride Carbon Dioxide Anion Gap BUN Creatinine Estimated GFR (MDRD) Glucose Calcium Total Bilirubin AST ALT Alkaline Phosphatase Total Protein Albumin Globulin Albumin/Globulin Ratio Lipase HCG, Quant 19183.00 Urine Color Urine Clarity Urine pH Ur Specific [place] Urine Protein Urine Glucose (UA) Urine Ketones Urine Occult Blood Urine Nitrite Urine Bilirubin Urine Urobilinogen Ur Leukocyte Esterase Ur Microscopic Review Urine Culture Comments - Rads (name of study) OB US Radiology: Prelim report reviewed, EMP read contemporaneously, See rad report PD MEDICAL DECISION MAKING - ED course Complexity details: reviewed results, re-evaluated patient, considered differential, d/w patient ED course: 29-year-old female with vaginal bleeding. She is approximately 12 to 13 weeks . Decreased bleeding in the emergency department. No acute findings on laboratory testing or ultrasound. No abdominal pain. We will have her follow- up with her OB for further care. Patient counseled regarding signs and symptoms for which I believe and urgent re-evaluation would be necessary. Patient with good understanding of and agreement to plan and is comfortable going home at this time This document was made in part using voice recognition software. While efforts are made to proofread this document, sound alike and grammatical errors may occur. IMPRESSION: Source of vaginal bleeding is not seen. Single living intrauterine gestation with the teleradiology projected to be centered on 09/09/2020, +/- 5 days, based on the first OB ult rasound dated 01/15/2020. Departure - Departure Disposition: 01 Home, Self Care Clinical Impression: Vaginal bleeding before 22 weeks gestation Condition: Good Instructions: Bleeding Early Preg Follow-Up: Shweta Kelley CNM, ACCOUNT TECHNICIAN [Provider Admit Priv/Credential] - Within 1 week Comments: Your test do not show any acute abnormalities today. Follow-up with your doctor for further care. Return if you worsen. Discharge Date/Time: 02/26/20 16:10
[2020-02-26 16:02] VITALS: BP 127/81
--- NOTE | 2020-02-26 16:17 | Ultrasound Report ---
PROCEDURE: OB First Trimester INDICATIONS: vaginal bleeding OUTSIDE/PRIOR DATING DATA: Last menstrual period (LMP): 11/20/2019. LMP-based estimated date of delivery (ADELA): 08/26/2020. First dating scan (date and location): 01/15/2020. Estimated date of delivery (ADELA) from first dating scan: 09/09/2020, +/- 5 days. TECHNIQUE: Real-time scanning was performed of the fetus and maternal pelvic organs, with image documentation. COMPARISON: First OB ultrasound. FINDINGS: There is a single living intrauterine gestation with heart rate 1 53 bpm and with cervix i s normal in length and closed. Tancred-rump length is 7.0 cm correlated with a gestational age of 13 we eks 1 day, and there has been appropriate interval growth considering measurement variability between the first OB ultrasound in the current study. Measurement variability in dating: +/- 4 weeks by LMP, +/- 7 days by mean sac diameter (use before 6 weeks gestation if crown-rump length not able to be measured), +/- 5 days by crown-rump length (6-12 weeks gestation). Maternal organs: Ovaries right corpus luteum cyst.. Limited images through the kidneys demonstrate no hydronephrosis. IMPRESSION: Source of vaginal bleeding is not seen. Single living intrauterine gestation with the teleradiology p rojected to be centered on 09/09/2020, +/- 5 days, based on the first OB ultrasound dated 01/15/2020. Reviewed by: Torsten Garcia MD on 02/26/2020 4:16 PM PST Approved by: Torsten Garcia MD on 02/26/2020 4:16 PM PST Station ID: [id number]
== END 2020-02-26 16:10 | disposition home or self-care (01) ==
LOC: ED 13:45
DX: O20.9 Hemorrhage in early pregnancy, unspecified (principal); Z3A.00 Weeks of gestation of pregnancy not specified
CPT/HCPCS: 36415; 80053; 81001; 81003; 83690; 84702; 85025; 86900; 86901; 87086; 99284

== ENCOUNTER 2020-05-06 08:49 | Outpatient (CLI) | payer MEDICAID ==
--- NOTE | 2020-05-06 15:46 | Ultrasound Report ---
PROCEDURE: OB Detailed Eval INDICATIONS: SCREENING OUTSIDE/PRIOR DATING DATA: Last menstrual period (LMP): 11/20/2019. LMP-based estimated date of delivery (ADELA): 08/26/2020. First dating scan (date and location): 01/15/2020. Estimated date of delivery (ADELA) from first dating scan: 09/10/2019. TECHNIQUE: Real-time scanning was performed of the fetus, with image documentation and biometric measurements. COMPARISON: OB ultrasound 01/15/2020, 02/26/2020 FINDINGS: General: A single living intrauterine gestation is present. Presentation: Breech Placenta: Placental position is fundal, without previa. Amniotic fluid index: 14.8 cm, 53rd percentile for gestational age. heart rate: 143 beats per minute. Maternal cervical canal: 4.3 cm long; normal length is 2.5 cm or more. biometrics: Biparietal diameter: 5.5 cm 22 weeks 6 days Head circumference: 20.6 cm 22 weeks 5 days Abdominal circumference: 17.9 cm 22 weeks 6 days Femur length: 3.8 cm 22 weeks 3 days Estimated gestational age from initial scan: 22 weeks 0 days Composite gestational age from present scan: 22 weeks 5 days Estimated weight and percentile: 524 g 78th percentile Anatomic survey: Neuro: Ventricles are normal at less than 10 mm. Cisterna magna is normal at 3-11 mm. Cerebellum i s normal in size and morphology. Nuchal skin fold: Normal at less than 6 mm between 14 and 20 weeks gestational age. Face: Nose and lips, facial profile are normal. Spine: No evidence for spina bifida. Heart: 4-chambered heart is present, with normal ventricular outflow tracts. Diaphragm: Diaphragm is intact. Stomach: Left-sided stomach is present. Kidneys: No hydronephrosis. Normal is less than 5 mm in 2nd trimester, less than 7 mm in 3rd trimester. Cord: 3 vessel cord has orthotopic insertion. Bladder: Normal in size. Extremities: All 4 extremities are visualized. Previous right ovarian cyst is not visualized. IMPRESSION: 1. Single live intrauterine with ultrasound gestational age of 22 weeks 5 days. This corres ponds to initial ultrasound of 22 weeks 0 days. 2. Anatomy is within normal limits. Reviewed by: Risa Sales MD on 05/06/2020 3:45 PM PDT Approved by: Risa Sales MD on 05/06/2020 3:45 PM PDT Station ID: [id number]
--- OUTSIDE RECORDS SUMMARY | 2020-05-21 14:48 | EXTERNAL MEDICAL SUMMARY RPT | Continuity of Care Document ---
:1990 Demographics Phone Unavailable Preferred Language Unknown Marital Status Unknown [employer] Affiliation Unknown Race Unknown Ethnic Group Unknown Author Organization [place] Address [address] [phone] Phone Social History date description facility [phone]
== END 2020-05-06 08:50 | disposition home or self-care (01) ==
LOC: DI 08:49
PROVIDERS: ATTEND Advanced Practice Midwife
DX: O32.1XX0 Maternal care for breech presentation, not applicable or unspecified (principal); Z3A.22 22 weeks gestation of pregnancy; Z36.89 Encounter for other specified antenatal screening

== ENCOUNTER 2020-06-17 10:16 | Outpatient (CLI) | payer MEDICAID ==
[2020-06-17 12:03] LABS: HCT - HEMATOCRIT 36.2 % (37.0-47.0); HGB - HEMOGLOBIN 12.1 g/dL (12.0-16.0); MEAN CORPUSCULAR HEMOGLOBIN 28.2 pg (27.0-31.0); MEAN CORPUSCULAR HGB CONC 33.4 g/dL (32.0-36.0); MEAN CORPUSCULAR VOLUME 84.4 fL (81.0-99.0); MEAN PLATELET VOLUME 10.7 fL (7.9-10.8); RED BLOOD COUNT 4.29 10^6/uL (4.20-5.40); RED CELL DISTRIBUTION WIDTH 13.6 % (12.0-15.0)
== END 2020-06-17 10:17 | disposition home or self-care (01) ==
LOC: LAB 10:16
PROVIDERS: ATTEND Nurse Practitioner Obstetrics & Gynecology
DX: Z36.89 Encounter for other specified antenatal screening (principal)
CPT/HCPCS: 36415; 82950; 85027

== ENCOUNTER 2020-08-08 13:54 | Outpatient (CLI) | payer MEDICAID ==
[2020-08-08 14:12] VITALS: BP 108/79
--- NOTE | 2020-08-08 14:47 | PROVIDER PROGRESS NOTE ---
- HPI Chief Complaint: Vaginal bleeding Current : Current EDU 09/09/20 Gestation 35 Weeks and 3 Days 3 Para 2 Vital Signs Temperature 98.6 F 08/08/20 14:05 Heart Rate 96 08/08/20 14:05 Respiratory Rate 18 08/08/20 14:05 Blood Pressure 108/79 08/08/20 14:05 O2 Saturation 98 08/08/20 14:05 Temperature 98.6 F 08/08/20 14:05 Heart Rate 96 08/08/20 14:05 Respiratory Rate 18 08/08/20 14:05 Blood Pressure 108/79 08/08/20 14:05 O2 Saturation 98 08/08/20 14:05 - Exam 29yo 35 3/7 weeks. Patient reports 2 episodes of bleeding this morning, both about size of quarter and bright red. Patient denies any pelvic activity in the past 24 hours. Patient reports good movement. Patient denies any contractions or SROM. Patient had some"flashes" in her eyes, but not today. O- VSS 108/79 General: Patient is resting on triage stretcher in no acute distress. Chest: Clear to auscultation. Good breath sounds in all wade. Heart: RRR without murmur or gallop. Abdomen: Soft, non-tender, Gravid. Extremities: No pitting pretibial or pedal edema seen. Bedside Ultrasound: Vertex presentation confirmed. Placenta is fundal. V/V: No lesions, no erythema, no signs of blood or recent bleeding. Some white discharge is present in vagina and on cervix. CX: White discharge is present. No lesions, no erythema, no cervical motion tenderness. Cervix is Long/Closed/-3, Soft, anterior. A- IUP 35 3/7 with Vaginal Bleeding episode this morning times two. P- Urinalysis to assess for hematuria and bacturia - Plan Plan: Discharge patient to home with labor precautions. No blood in patient's urine.
[2020-08-08 15:01] LABS: BILIRUBIN,URINE NEGATIVE (NEGATIVE); GLUCOSE, URINE (UA) NEGATIVE (NEGATIVE); KETONES,URINE (UA) NEGATIVE (NEGATIVE); LEUKOCYTE ESTERASE, URINE NEGATIVE (NEGATIVE); NITRITE,URINE NEGATIVE (NEGATIVE); OCCULT BLOOD,URINE NEGATIVE (NEGATIVE); PROTEIN,URINE NEGATIVE (NEGATIVE); UROBILINOGEN,URINE 0.2 (NORMAL) E.U./dL (NORMAL)
[2020-08-08 15:02] LABS: CLARITY,URINE CLEAR (CLEAR)
== END 2020-08-08 15:30 | disposition home or self-care (01) ==
LOC: WFO 13:54 → FBP 13:56 → WFO 15:30
PROVIDERS: ATTEND Obstetrics & Gynecology
DX: O26.853 Spotting complicating pregnancy, third trimester (principal); Z3A.35 35 weeks gestation of pregnancy
CPT/HCPCS: 81001; 81003; 87086; 99214; 99215

== ENCOUNTER 2020-08-15 08:00 | Outpatient (CLI) | payer MEDICAID | END 2020-08-15 23:59 | disposition home or self-care (01) | LOC: LAB.WC 08:00 | PROVIDERS: ATTEND Advanced Practice Midwife | DX: Z34.90 Encounter for supervision of normal pregnancy, unspecified, unspecified trimester (principal); Z36.85 Encounter for antenatal screening for Streptococcus B | CPT/HCPCS: 87797 ==

== ENCOUNTER 2020-09-03 17:01 | Outpatient (CLI) | payer MEDICAID ==
[2020-09-03 17:31] LABS: BASOPHILS % (AUTO) 0.3 %; EOSINOPHILS # (AUTO) 0.1 10^3/uL (0.0-0.7); EOSINOPHILS % (AUTO) 0.7 %; HCT - HEMATOCRIT 36.3 % (37.0-47.0); HGB - HEMOGLOBIN 11.7 g/dL (12.0-16.0); LYMPHOCYTES # (AUTO) 1.7 10^3/uL (1.5-3.5); LYMPHOCYTES % (AUTO) 18.1 %; MEAN CORPUSCULAR HEMOGLOBIN 26.7 pg (27.0-31.0); MEAN CORPUSCULAR HGB CONC 32.2 g/dL (32.0-36.0); MEAN CORPUSCULAR VOLUME 82.9 fL (81.0-99.0); MEAN PLATELET VOLUME 11.8 fL (7.9-10.8); MONOCYTES # (AUTO) 1.1 10^3/uL (0.0-1.0); MONOCYTES % (AUTO) 11.8 %; NEUTROPHILS # (AUTO) 6.5 10^3/uL (1.5-6.6); NEUTROPHILS % (AUTO) 68.5 %; PLT - PLATELET COUNT 278 10^3/uL (130-450); RED BLOOD COUNT 4.38 10^6/uL (4.20-5.40); RED CELL DISTRIBUTION WIDTH 14.5 % (12.0-15.0); WHITE BLOOD COUNT 9.4 x10^3/uL (4.8-10.8)
[2020-09-04 12:46] LABS: HEPATITIS B SURFACE ANTIGEN NON-REACTIVE (NON-REACTIVE)
[2020-09-04 12:47] LABS: HEPATITIS C ANTIBODY NON-REACTIVE (NON-REACTIVE)
[2020-09-04 14:16] LABS: HIV AG/AB 4TH GEN NON-REACTIVE (NON-REACTIVE)
== END 2020-09-03 17:02 | disposition home or self-care (01) ==
LOC: LAB 17:01
PROVIDERS: ATTEND Advanced Practice Midwife
DX: Z34.90 Encounter for supervision of normal pregnancy, unspecified, unspecified trimester (principal); Z36.89 Encounter for other specified antenatal screening
CPT/HCPCS: 36415; 85025; 86592; 86762; 86787; 86803; 86850; 86900; 86901; 87340; 87389

== ENCOUNTER 2020-09-03 21:37 | Outpatient (CLI) | payer MEDICAID ==
[2020-09-03 22:14] VITALS: BP 123/71
[2020-09-03 22:45] LABS: RUPTURE OF MEMBRANES PLUS NEGATIVE (NEGATIVE)
--- NOTE | 2020-09-04 11:30 | PROVIDER PROGRESS NOTE ---
- HPI Chief Complaint: Labor Check Current : Current EDU 09/09/20 Gestation 39 Weeks and 1 Days 3 Para 2 Vital Signs Temperature 36.8 C 09/03/20 21:59 Heart Rate 82 09/03/20 21:59 Respiratory Rate 20 09/03/20 21:59 Blood Pressure 123/71 09/03/20 21:59 O2 Saturation 99 09/03/20 21:59 Temperature 36.8 C 09/03/20 21:59 Heart Rate 82 09/03/20 21:59 Respiratory Rate 20 09/03/20 21:59 Blood Pressure 123/71 09/03/20 21:59 O2 Saturation 99 09/03/20 21:59 - Procedures OB Procedure Performed: NST Diagnosis/Indication for NST: Other NST Procedure: NST Procedure Start Date 09/03/20 Start Time 21:50 Stop Time 22:30 Vibroacoustic Stimulation Used No Patient States Movement Yes - Plan Plan: S:Estela presents to [facility] with c/o contractions every 5-7 minutes and then feeling like her water may have broken. She is not entirely sure but is expecting a baby soon because she delivery at 39wks with her previous babies. She denies vaginal bleeding and reports +FM. She states her contractions are manageable and she is easily breathing through them at this time. O: NST performed 09/03/2020 NST read 09/04/2020 NST reactive. FHR baseline 140, moderate variability, + accels, no decels Contractions palpate moderate every 5-7 minutes with soft resting tone. ROM+ collected - NEGATIVE SVE 3/50/-3, posterior. Vertex. SVE in 1 hour unchanged and pt requests to go home. A: 29yo @ 39.1wks gestation by 6.0wk U/S GBS neg ROM+ negative False labor FHR Category I Plan: Pt released home with precautions. She has emergency contact number. She denies further questions or concerns at this time. FINAL DIAGNOSIS: False labor >37wks gestation
== END 2020-09-04 00:15 | disposition home or self-care (01) ==
LOC: WFO 21:37 → FBP 21:39 → WFO 09-04 00:15
PROVIDERS: ATTEND Nurse Practitioner Obstetrics & Gynecology
DX: O47.1 False labor at or after 37 completed weeks of gestation (principal); Z3A.39 39 weeks gestation of pregnancy
CPT/HCPCS: 84112; 99214

== ENCOUNTER 2020-09-04 07:14 | Inpatient (IN) | payer MEDICAID ==
[2020-09-04] MEDS ORDERED: OXYTOCIN 10 UNIT/ML VIAL IM PRN (07:31)
[2020-09-04] MEDS ORDERED: METHYLERGONOVINE 0.2 MG/ML VIAL IM PRN (07:31)
[2020-09-04] MEDS ORDERED: TRANEXAMIC ACID IN NACL 1,000 MG/100 ML BAG IV PRN (07:31)
[2020-09-04] MEDS ORDERED: SODIUM CHLORIDE FLUSH 0.9% 10 ML SYRINGE IVP PRN (07:31)
[2020-09-04] MEDS ORDERED: OXYTOCIN/SODIUM CHLORIDE 500 ML IV PRN (07:31)
[2020-09-04] MEDS ORDERED: LIDOCAINE-MPF 1% 30 ML VIAL ID PRN (07:31)
[2020-09-04] MEDS ORDERED: CARBOPROST TROMETHAMINE 250 MCG/ML AMP IM PRN (07:31)
[2020-09-04] MEDS ORDERED: miSOPROStoL 200 MCG TABLET BC PRN (07:31)
[2020-09-04] MEDS ORDERED: LACTATED RINGERS 1,000 ML IV SCH (08:00)
[2020-09-04 08:07] LABS: BASOPHILS % (AUTO) 0.3 %; EOSINOPHILS # (AUTO) 0.1 10^3/uL (0.0-0.7); EOSINOPHILS % (AUTO) 0.7 %; HCT - HEMATOCRIT 37.3 % (37.0-47.0); HGB - HEMOGLOBIN 12.1 g/dL (12.0-16.0); LYMPHOCYTES # (AUTO) 2.5 10^3/uL (1.5-3.5); LYMPHOCYTES % (AUTO) 23.6 %; MEAN CORPUSCULAR HEMOGLOBIN 26.4 pg (27.0-31.0); MEAN CORPUSCULAR HGB CONC 32.4 g/dL (32.0-36.0); MEAN CORPUSCULAR VOLUME 81.4 fL (81.0-99.0); MEAN PLATELET VOLUME 11.8 fL (7.9-10.8); MONOCYTES # (AUTO) 1.3 10^3/uL (0.0-1.0); MONOCYTES % (AUTO) 11.9 %; NEUTROPHILS # (AUTO) 6.6 10^3/uL (1.5-6.6); NEUTROPHILS % (AUTO) 62.8 %; PLT - PLATELET COUNT 271 10^3/uL (130-450); RED BLOOD COUNT 4.58 10^6/uL (4.20-5.40); RED CELL DISTRIBUTION WIDTH 14.6 % (12.0-15.0); WHITE BLOOD COUNT 10.5 x10^3/uL (4.8-10.8)
[2020-09-04] MEDS ORDERED: HYDROCORTISONE 1% CREAM 28 GM TUBE PR PRN (08:28)
[2020-09-04] MEDS ORDERED: WITCH HAZEL/GLYCERIN 1 PAD TOP PRN (08:28)
--- NOTE | 2020-09-04 08:43 | DELIVERY NOTE ---
Delivery Note - Labor Labor: positive: Spontaneous - Delivery Method Delivery Method: positive: Spontaneous vaginal delivery - Presentation Presentation: positive: Vertex, SONA - left occiput anterior - Nuchal Cord Nuchal Cord: positive: Present, Reduced - Amniotic Fluid Description Amniotic Fluid Description: positive: Clear - Episiotomy Type Episiotomy Type: positive: None - Laceration Laceration: positive: None - Delivery Outcome Delivery Outcome: positive: Livebirth - [place]: positive: Placed in direct skin contact with mother, Stimulated, Warmed, Vicco used sex: positive: Male - Cord Cord: positive: 3 vessels - Placenta Placenta: positive: Intact, Spontaneous - Estimated Blood Loss Estimated Blood Loss (in cc): 200 - Post Delivery Events Post Delivery Events: positive: No post delivery events - Delivery Comments (Free Text/Narrative) Delivery Comments (Free Text/Narrative): Labor: This 29yo @ 39.2wks gestation by 6.0wks ultrasound which was not c/w LMP dating. She presented on 09/04/2020 at 0715 with c/o contractions. SVE 5/80/-3, vertex. FHR pattern demonstrated Category I pattern throughout labor. Precipitous labor course. Pt progressed to c/c/+1 @ 0801 with onset of spontaneous pushing at 0805. SROM occurred at 0813 and was noted to be a small amount of clear fluid. : Normal of viable male infant on 09/04/2020 @ 0814. Nuchal cord x 1 reduced. The was placed on maternal abdomen, stimulated, dried, and placed skin to skin. Apgars were 8/9 at 1 and 5 minutes respectively. Pitocin administered via IV for hemostasis. The umbilical cord was allowed to stop pulsating at which time it was doubly clamped by CNM and cut by FOB. 3VC. Cord blood was obtained. Fundal massage and gentle cord traction applied for active management of the third stage. Placenta delivered spontaneously and intact with trailing membranes at 0819. EBL 200mL. Fourth stage: Uterine fundus firm and there is no excessive bleeding. The perineum, vagina, and cervix were inspected and found to be intact. initiated. Family bonding well. Both mother and baby were left in stable condition.
[2020-09-04] MEDS: ACETAMINOPHEN 500 MG TABLET PO SCH ×2 (08:57→17:08)
[2020-09-04] MEDS: IBUPROFEN 600 MG TABLET PO SCH ×3 (08:57→21:15)
[2020-09-04] MEDS: DOCUSATE SODIUM 100 MG CAPSULE PO SCH ×2 (08:58→21:16)
[2020-09-04] MEDS ORDERED: SODIUM CHLORIDE FLUSH 0.9% 10 ML SYRINGE IVP SCH (09:00)
--- NOTE | 2020-09-04 11:15 | HISTORY & PHYSICAL EXAMINATION ---
Admit History - Visit Reason Visit Reason: Contractions - : 3 Parity: 2 Premature: 0 Ectopic: 0 : 0 Care: positive: [facility] Risk/History: positive: None Complications This : positive: None Smoking Status: Never smoker - Mother's Labs Mother's Blood Type: positive: O Mother's RH: positive: Positive GBS: positive: Group B Step Negative Rubella Status: positive: Immune Meds/Allgy - Home Medications Home Medications: Ambulatory Orders Medication Instructions Recorded Confirmed No Known Home Medications 08/04/17 08/04/17 - Allergies Allergies/Adverse Reactions: Allergies Allergy/AdvReac Type Severity Reaction Status Date / Time No Known Drug Allergies Allergy Verified 02/26/20 13:55 Review of Systems - Constitutional Constitutional: denies: Fatigue, Fever, Chills, Malaise - Eyes Eyes: denies: Blurred vision, Spots in vision, Dipolpia - Cardiovascular Cariovascular: denies: Chest pain, Edema - Respiratory Respiratory: denies: Cough, SOB at rest - Integumentary Integumentary: denies: Rash, Pruritis - Neurological Neurological: denies: Headache Physical - Abdominal Exam Vital Signs: Temp Pulse Resp BP Pulse Ox 36.8 C 74 17 134/81 H 09/04/20 07:44 09/04/20 07:44 09/04/20 07:44 09/04/20 07:44 Contraction Frequency (min/apart): 5 Contraction Intensity: positive: Strong Uterine Resting Tone: positive: Soft - Monitoring Heart Rate Baseline: 140 Strip Review: positive: Category I - Presentation Presentation: positive: Vertex - Vaginal Exam Membranes: positive: Membranes intact Dilation (in cm): 5 Effacement (%): 80 Station: positive: -3 - Speculum Exam Speculum Exam Performed: positive: No Plan for Labor - Plan For Labor I expect patient to be DC'd or transferred within 96 hours.: Yes Plan for Labor: Estela is a 29yo @ 39.2wks gestatio nby 6.0wk U/S not c/w LMP dating. She presented to [facility] at 0715 on 09/04/2020 with complaints of contractions. She states contractions began yesterday evening and have increased in frequency and intensity since that time. She denies vaginal bleeding or leakage of fluid. She reports +FM. She is coping well contractions and intends an unmedicated delivery as she has had with her 2 previous pregnancies. She is supported be her partner Romeo today. She has been a patient of [facility] for the duration of her which has remained uncomplicated. She did not have her lab panel drawn until yesterday secondary to lab error however she had labs drawn at our facility in 2018 which were WNL. Her GBS is negative. She will be admitted to [facility] for expectant management. Dating criteria: LMP unsure 11/20/2019 Initial ultrasound @ 6.0wks not c/w LMP dating - ADELA 09/09/2020 Serial exams - agree OB Hx: G1: 05/12/2016, @ 39wks, unmedicated, male [id number] G2: 01/29/2018, @ 39.3wks, unmedicated, female 7lbs 3oz G3: current Medications: PNV Allergies: NKDA PMHx: Asthma Surgical Hx: none Social Hx: Never smoker, no ETOH or IVDA. Partner Romeo. Family Hx: Asthma- brother course: Initial U/S: 01/15/2020 at at 6.0wks gest not c/w LMP due date (08/26/2020) for final ADELA 09/09/2020 O pos/Rubella immune VZV: Gentic testing: declines FAS: FAS WNL. Fundal placenta without previa. CONNER WNL. 3VC. Size c/w dating (EFW 78%tile). Glucola 98 Flu: declined at confirmation TDAP 06/14/2020 GBS at 36.3 weeks -Negative HSV: denies self and partner Breast pump Rx provided 08/15 MOD: . Romeo (Rigoberto or No-ay). unmedicated x2. (Son Jose Ramon Franklin (2)). It's a BOY! no name yet pp contraception: IUD (still deciding Paragard of Mirena) PAP: 02/12/2020- nilm Physical exam: Normocephalic, atraumatic Heart RRR w/o M/G/R Lungs CTAB Abdomen gravid, soft, nontender EFW 3400g FHR baseline 140s, moderate variability, + accels, no decels Contractions palpate strong every 3-4 minutes with soft resting tone Bilateral LE's trace edema Mood is good. Assessment: 29yo @ 39.2wks gestation Active labor FHR Category I GBS negative Plan: Admit for expectant management Nitrous oxide PRN. Continuous monitoring Anticipate .
[2020-09-05] MEDS: ACETAMINOPHEN 500 MG TABLET PO SCH ×2 (00:57→09:22)
[2020-09-05] MEDS: IBUPROFEN 600 MG TABLET PO SCH (04:21)
[2020-09-05 08:37] VITALS: BP 124/69
[2020-09-05] MEDS: DOCUSATE SODIUM 100 MG CAPSULE PO SCH (09:22)
--- NOTE | 2020-09-05 11:06 | Discharge Plan ---
Discharge Plan Problem Reviewed?: Yes Disposition: Home, Self Care Condition: Good Diet: Regular Activity Restrictions: No Restrictions Shower Restrictions: No Driving Restrictions: No Weight Bearing: Full Weight No Smoking: If you smoke, Please STOP! Call for help. Follow-up with: Shweta Kelley CNM, ARNP [Provider Admit Priv/Credential] -
--- NOTE | 2020-09-05 11:26 | DISCHARGE SUMMARY ---
Discharge Summary Condition at Discharge: Good Discharge Disposition: 01 Home, Self Care - HOSPITAL COURSE Hospital Course: FINAL PROGRESS NOTE: S: Bonding well with baby. without difficulty. Bleeding decreased and is light. Pain well controlled with oral medications. O: BP 124/69, T 36.6, RR 16, HR 72 Heart RRR w/o M/G/R, lungs CTAB, abdomen soft and nontender with fundus firm at U-1, perineum intact, light lochia rubra, bilateral LE's no edema A: 29yo -->P3 PPD#1 s/p TSVD viable male P: Reviewed pp self care and warning s/sx and when to present. Has emergency contact number. Encouraged continuation of PNV while . Continue ibuprofen and tylenol OTC as needed for pain management. F/u in 1 week or sooner PRN. Pt verbalized understanding and agrees to above plan. She denies further questions or concerns at this time. DISCHARGE SUMMARY: Date of admission 09/04/2020 Date of discharge 09/05/2020 Diagnosis on admission: 1. 29yo @ 39.2wks gestation 2. Active labor 3. GBS negative Diagnosis on discharge: 1. 29yo PPD#1 s/p TSVD viable male 2. Brief History: She is a patient of [facility] who presented on 09/04/2020 in active labor. She was noted to contract every 3-5 minutes and SVE 5/80/-2. She was admitted for expectant management and progressed to spontaneously deliver a viable male infant. Apgars were 8/9 at 1 and 5 minutes respectively. EBL 200mL. Her perineum was found to be intact. She has been doing well in her course. She is ambulating and tolerating a regular diet. She is urinating without difficulty and her lochia is normal. Her pain is well controlled with oral medications. She will be discharged home today on day #1 with instructions to continue taking her ibuprofen and tylenol OTC as needed for pain management. She intends to f/u with myself at [facility] in 1 week for routine pp visit or s ooner PRN. She has been given precautions to call if she has any worsening fevers, chills, abdominal pain, increased bleeding, or foul smelling vaginal lochia. - ALLERGIES Allergies/Adverse Reactions: Allergies Allergy/AdvReac Type Severity Reaction Status Date / Time No Known Drug Allergies Allergy Verified 09/04/20 22:08 - MEDICATIONS Home Medications: Ambulatory Orders Medication Instructions Recorded Confirmed No Known Home Medications 08/04/17 09/04/20 - LABS Result Diagrams: 09/04/20 07:46
== END 2020-09-05 13:15 | disposition home or self-care (01) | DRG 807 ==
LOC: WFO 07:14 → FBP 07:17 → WFO 07:30 → FBP 07:31
PROVIDERS: ADMIT Nurse Practitioner Obstetrics & Gynecology; ATTEND Nurse Practitioner Obstetrics & Gynecology
PROC: 10E0XZZ Delivery of Products of Conception, External Approach (ICD-10-PCS; principal; 2020-09-04)
DX: O69.81X0 Labor and delivery complicated by cord around neck, without compression, not applicable or unspecified (principal); Z37.0 Single live birth; Z3A.39 39 weeks gestation of pregnancy
CPT/HCPCS: 36415; 84112; 85025; 86592; 86762; 86787; 86803; 86850; 86900; 86901; 87340; 87389; 99214; A9270; J7120

== ENCOUNTER 2022-12-28 15:30 | Outpatient (CLI) | payer MEDICAID | END 2022-12-28 15:45 | disposition home or self-care (01) | LOC: LAB.N 15:30 | PROVIDERS: ATTEND Family Medicine | DX: S91.332A Puncture wound without foreign body, left foot, initial encounter (principal) | CPT/HCPCS: 87070; 87205 ==

== ENCOUNTER 2022-12-29 09:41 | Outpatient (CLI) | payer MEDICAID ==
--- NOTE | 2022-12-29 16:34 | XRAY Report ---
PROCEDURE: Foot 3 View LT INDICATIONS: PUNCTURE WOUND WITHOUT FOREIGN BODY, INITIAL ENCOU TECHNIQUE: 3 views of the foot were acquired. COMPARISON: None. FINDINGS: Bones: No fractures or dislocations. No suspicious bony lesions. No plain film evidence of osteom yelitis. Soft tissues: No suspicious soft tissue calcifications or masses. No radiopaque foreign body or so ft tissue gas. IMPRESSION: No acute bony abnormality. Reviewed by: Seamus Merino MD on 12/29/2022 4:32 PM PST Approved by: Seamus Merino MD on 12/29/2022 4:32 PM PST Station ID: [id number]
== END 2022-12-29 09:42 | disposition home or self-care (01) ==
LOC: DI 09:41
PROVIDERS: ATTEND Family Medicine
DX: S91.322A Laceration with foreign body, left foot, initial encounter (principal)

== ENCOUNTER 2022-12-30 07:30 | Outpatient (CLI) | payer MEDICAID ==
[2022-12-30 11:47] LABS: BASOPHILS % (AUTO) 0.6 %; EOSINOPHILS # (AUTO) 0.2 10^3/uL (0.0-0.7); EOSINOPHILS % (AUTO) 3.6 %; HCT - HEMATOCRIT 44.6 % (37.0-47.0); HGB - HEMOGLOBIN 14.1 g/dL (12.0-16.0); LYMPHOCYTES # (AUTO) 1.4 10^3/uL (1.5-3.5); LYMPHOCYTES % (AUTO) 23.3 %; MEAN CORPUSCULAR HEMOGLOBIN 27.9 pg (27.0-31.0); MEAN CORPUSCULAR HGB CONC 31.6 g/dL (32.0-36.0); MEAN CORPUSCULAR VOLUME 88.1 fL (81.0-99.0); MONOCYTES # (AUTO) 0.7 10^3/uL (0.0-1.0); MONOCYTES % (AUTO) 11.8 %; NEUTROPHILS # (AUTO) 3.7 10^3/uL (1.5-6.6); NEUTROPHILS % (AUTO) 60.2 %; PLT - PLATELET COUNT 340 10^3/uL (130-450); RED BLOOD COUNT 5.06 10^6/uL (4.20-5.40); RED CELL DISTRIBUTION WIDTH 14.1 % (12.0-15.0); WHITE BLOOD COUNT 6.2 x10^3/uL (4.8-10.8)
[2022-12-30 12:16] LABS: ALBUMIN 4.6 g/dL (3.2-5.5); ALBUMIN/GLOBULIN RATIO 1.8 (1.0-2.2); ALKALINE PHOSPHATASE 56 IU/L (42-121); ALT ALANINE AMINOTRANSFERASE 24 IU/L (10-60); AST ASPARTATE AMINOTRANSFERASE 18 IU/L (10-42); BILIRUBIN,TOTAL 0.5 mg/dL (0.2-1.0); BUN - BLOOD UREA NITROGEN 14 mg/dL (6-20); CALCIUM 9.3 mg/dL (8.5-10.3); CARBON DIOXIDE - CO2 26 mmol/L (21-32); CHLORIDE 105 mmol/L (101-111); CHOL/HDL RATIO 2.8 (<4.4); CHOLESTEROL 165 mg/dL; CREATININE 0.7 mg/dL (0.6-1.3); GFR - MDRD 98 (>89); GLUCOSE 66 mg/dL (74-104); HDL CHOLESTEROL 60 mg/dL; LDL CHOLESTEROL,CALCULATED 89 mg/dL; LDL/HDL RATIO 1.5 (<4.4); SODIUM 137 mmol/L (135-145); TOTAL PROTEIN 7.2 g/dL (6.4-8.9); TRIGLYCERIDES 82 mg/dL (48-352); VLDL CHOLESTEROL 16 mg/dL
== END 2022-12-30 07:45 | disposition home or self-care (01) ==
LOC: LAB.N 07:30
PROVIDERS: ATTEND Family Medicine
DX: R03.0 Elevated blood-pressure reading, without diagnosis of hypertension (principal); R00.2 Palpitations
CPT/HCPCS: 36415; 80050; 80061; 83721